=== PATIENT | female | born 1980 | race Asian ===

== ENCOUNTER 2025-04-26 00:03 | Emergency (ER) | payer BC ==
[~2025-04-26] VITALS: Ht 162.6 cm; Wt 61.0 kg
[2025-04-26 00:15] VITALS: O2SAT 98
[2025-04-26] MEDS: IBUPROFEN 600MG TABLET PO ONE (01:30)
[2025-04-26] MEDS: TETANUS, DIPHTHERIA, PERTUSSIS VAC/PF 0.5ML (>10YR OLD) IM ONE (01:30)
[2025-04-26] MEDS ORDERED: IBUP-1455 MT (01:41)
[2025-04-26 01:51] VITALS: BP 102/47; PULSE 87; RESP 18; TEMP 36.8; O2SAT 100
== END 2025-04-26 01:55 | disposition home or self-care (01) ==
LOC: ER 00:03
DX: S40.022A Contusion of left upper arm, initial encounter (principal); S40.021A Contusion of right upper arm, initial encounter; S80.12XA Contusion of left lower leg, initial encounter; S80.11XA Contusion of right lower leg, initial encounter; X58.XXXA Exposure to other specified factors, initial encounter; Y93.89 Activity, other specified; Y92.89 Other specified places as the place of occurrence of the external cause; Y99.8 Other external cause status
CPT/HCPCS: 73110; 73130; 81025; 99284